=== PATIENT | female | born 1980 | race Two or more races ===

== ENCOUNTER 2017-06-06 03:52 | Emergency (ER) | payer OTHER ==
[~2017-06-06] VITALS: Ht 160 cm; Wt 88.5 kg
[2017-06-06] MEDS ORDERED: ZANTAC300 MG (05:03)
[2017-06-06] MEDS ORDERED: ULTRACET PO (08:32)
[2017-06-06] MEDS ORDERED: PROTONIX40 MG PO (08:32)
[2017-06-06] MEDS ORDERED: ZANTAC300 MG PO (08:32)
== END 2017-06-06 08:43 | disposition home or self-care (01) ==
LOC: ER 03:52
DX: R10.11 Right upper quadrant pain (principal); K29.60 Other gastritis without bleeding